=== PATIENT | male | born 1960 | race African-American/Black ===

== ENCOUNTER 2021-02-19 11:24 | Day surgery (SDC) | payer OTHER ==
[2021-02-17 14:59] VITALS: BMI 34.2
== END 2021-02-19 12:49 | disposition home or self-care (01) ==
LOC: FASU 11:24
PROVIDERS: ATTEND Orthopaedic Surgery Orthopaedic Surgery of the Spine
PROC: 0PB90ZZ Excision of Right Clavicle, Open Approach (ICD-10-PCS; principal; 2021-02-19)
DX: Z53.8 Procedure and treatment not carried out for other reasons (principal); M75.121 Complete rotator cuff tear or rupture of right shoulder, not specified as traumatic; M75.41 Impingement syndrome of right shoulder
CPT/HCPCS: 82962